=== PATIENT | male | born 1985 | race Caucasian/White ===

== ENCOUNTER 2022-06-26 09:53 | Emergency (ER) | payer OTHER ==
[2022-06-26] MEDS ORDERED: KETOROLAC TROMETHAMINE 60 MG/2 ML VIAL IM ONE (09:55)
[2022-06-26 10:00] VITALS: BP 140/93; PULSE 67; RESP 18; TEMP 97.8; BMI 25.7
[2022-06-26] MEDS ORDERED: KETOROLAC TROMETHAMINE 60 MG/2 ML VIAL ONE (10:03)
[2022-06-26] MEDS ORDERED: IBUPROFEN 600 MG TABLET (FP) PO ONE ×2 (10:05→10:07)
== END 2022-06-26 10:26 | disposition home or self-care (01) ==
LOC: FER 09:53
DX: S16.1XXA Strain of muscle, fascia and tendon at neck level, initial encounter (principal); X50.0XXA Overexertion from strenuous movement or load, initial encounter
CPT/HCPCS: 99283-25